=== PATIENT | male | born 1960 | race Caucasian/White ===

== ENCOUNTER 2020-05-31 06:18 | Day surgery (SDC) | payer OTHER ==
[2020-05-31] MEDS ORDERED: LACTATED RINGERS 1,000 ML IV ONE (06:26)
[2020-05-31] MEDS ORDERED: MIDAZOLAM 2 MG/2 ML VIAL IVP ONE (07:42)
[2020-05-31] MEDS ORDERED: fentaNYL 250 MCG/5 ML VIAL IVP ONE (07:42)
[2020-05-31 09:04] VITALS: BP 116/74
--- NOTE | 2020-05-31 09:15 | PROCEDURE REPORT ---
DATE OF SERVICE: 05/31/2020 Physician: Chucho Kenney MD PREOPERATIVE DIAGNOSES 1. Left upper quadrant pain. 2. Last screening colonoscopy 12 years ago. POSTOPERATIVE DIAGNOSES 1. Left upper quadrant pain. 2. Last screening colonoscopy 12 years ago. 3. Proximal descending colon diverticulosis without diverticulitis. Otherwise, normal colonoscopy. PROCEDURE PERFORMED: Colonoscopy. SURGEON: Chucho Kenney MD ANESTHESIA: IV sedation per nurse under MD supervision, 6 mg of Versed and 150 mcg of fentanyl. COMPLICATIONS: None. SPECIMENS: None. FINDINGS: The colonoscope was passed to the cecum. Appendix and ileocecal valve were identified. Patient had proximal descending colon diverticulosis without inflammation. A colonoscopy was otherwise normal. INDICATIONS FOR PROCEDURE: Patient is a 59-year-old gentleman who had a colonoscopy 12 years prior. He has had mild deep left upper quadrant discomfort for many months. He had a CT scan revealing possible diverticulosis, otherwise unremarkable. He presents for screening colonoscopy. Risks discussed, alternatives discussed. All questions answered and consent obtained. DESCRIPTION OF PROCEDURE: Patient was properly identified, brought to the operating room prior to the procedure and placed in the left lateral decubitus position where sedation was given. JUAN CARLOS was normal. The colonoscope was passed to the cecum as above. The colonoscope was slowly withdrawn. The length of the procedure was 45 minutes. The proximal diverticulosis was identified of the descending colon. Colonoscopy was otherwise normal. A significant amount of thin fluid was present; however, this was aspirated allowing for good visualization. Retroflex view of the rectum was normal. He tolerated the procedure well. TD: 05/31/2020 08:42 [facility]
== END 2020-05-31 06:19 | disposition home or self-care (01) ==
LOC: SDS 06:18
PROVIDERS: ATTEND Surgery
PROC: 0DJD8ZZ Inspection of Lower Intestinal Tract, Via Natural or Artificial Opening Endoscopic (ICD-10-PCS; principal; 2020-05-31 07:30)
DX: R10.12 Left upper quadrant pain (principal); K57.30 Diverticulosis of large intestine without perforation or abscess without bleeding; F17.210 Nicotine dependence, cigarettes, uncomplicated; E11.9 Type 2 diabetes mellitus without complications; G47.30 Sleep apnea, unspecified
CPT/HCPCS: 45378; J3010; J7120